=== PATIENT | male | born 1970 | race Caucasian/White ===

== ENCOUNTER 2017-06-08 04:49 | Inpatient (IN) | payer OTHER ==
[~2017-06-08] VITALS: Ht 190.5 cm; Wt 129.2 kg
[2017-06-08 06:19] LABS: Basophils # (auto) 0 uL; Basophils % (auto) 0.5 % (0.0-2.0); Eosinophils # (auto) 0.2 uL; Eosinophils % (auto) 1.6 % (0.0-7.0); Hemoglobin 15.3 g/dL (13.5-17.5); Lymphocytes # (auto) 1.7 uL; Lymphocytes % (auto) 18.1 % (10.0-50.0); Mean Corpuscular Hgb Conc. 34.1 g/dL (32.0-36.0); Mean Corpuscular Volume 87.9 fL (80.0-100.0); Monocytes # (auto) 0.6 uL; Monocytes % (auto) 6.8 % (0.0-12.0); Neutrophils # (auto) 6.8 uL; Nucleated Red Blood Cells % 0.1 %; Platelet Count (auto) 173 10^3/uL (140-450); Red Blood Cells 5.12 10^6/uL (4.5-5.90); Red Cell Distribution Width 13.1 % (11.8-14.3); White Blood Cell 9.3 10^3/uL (4.4-10.8)
[2017-06-08 06:33] LABS: INR 1.05 (0.9-1.15); Partial Thromboplastin Time 29.2 sec (22.64-33.71); Prothrombin Time 11.5 sec (9.37-12.3)
[2017-06-08 06:53] LABS: Albumin 3.9 g/dL (3.4-5.0); Bilirubin, Total 1.2 mg/dL (0.2-1.0); Calcium 8.5 mg/dL (8.5-10.1); Magnesium 2.5 mg/dL (1.6-2.6); Potassium 3.8 mmol/L (3.5-5.1); Total Protein 7.5 g/dL (6.4-8.2)
[2017-06-08] MEDS ORDERED: SODIUM CHLORIDE 0.9% 1,000 ML IV ONE (07:19)
[2017-06-08] MEDS ORDERED: ASPirin 81 mg TAB PO ONE (07:30)
[2017-06-08] MEDS ORDERED: IOHEXOL 350 MG/ML 100ML IJ ONE (12:37)
[2017-06-08] MEDS ORDERED: NITROGLYCERIN 0.4 MG SL TAB SL PRN (14:15)
[2017-06-08] MEDS ORDERED: MORPHINE SULFATE 10 MG/ML INJ 1ML SDV IV PRN ×2 (14:15)
[2017-06-08] MEDS ORDERED: LACTULOSE 20Gm/30ML SOLN PO PRN (14:15)
[2017-06-08] MEDS ORDERED: TEMAZEPAM 15 MG CAP PO PRN (14:15)
[2017-06-08] MEDS ORDERED: ACETAMINOPHEN 500 MG TAB PO PRN (14:15)
[2017-06-08] MEDS ORDERED: CLOPIDOGREL BISULFATE 75 MG TAB PO ONE (14:15)
[2017-06-08] MEDS ORDERED: PROMETHAZINE HCL 25 MG/ML 1ML IV PRN (14:15)
[2017-06-08] MEDS ORDERED: LORazepam 0.5 MG TAB PO PRN (14:15)
[2017-06-08] MEDS: SODIUM CHLORIDE 0.9% 1,000 ML IV SCH (14:29)
[2017-06-08 15:09] LABS: Alcohol, Urine < 3.0 mg/dL (0-5); Amphetamine Screen, Urine NEGATIVE (NEGATIVE); Barbiturate Scree,Urine NEGATIVE (NEGATIVE); Benzodiazephine Screen, Urine NEGATIVE (NEGATIVE); Cannabinoid Screen, Urine NEGATIVE (NEGATIVE); Cocaine Screen, Urine NEGATIVE (NEGATIVE); Opiate Scree,Urine NEGATIVE (NEGATIVE); Phencyclidine Screen, Urine NEGATIVE (NEGATIVE)
[2017-06-08] MEDS: PROMETHAZINE W/CODEINE 5 ML ORAL SYRUP PO PRN (19:56)
[2017-06-08] MEDS: DOXYCYCLINE 100 MG TAB/CAP PO SCH (22:55)
[2017-06-08] MEDS: ENOXAPARIN SOD 100 MG/1 ML SYRINGE SC SCH (22:55)
[2017-06-08] MEDS: METOPROLOL TARTRATE 25 MG TAB PO SCH (22:55)
[2017-06-08] MEDS: ATORVASTATIN 20 MG TAB PO SCH (22:55)
[2017-06-09] MEDS ORDERED: cloNIDine HCL 0.1 MG TAB PO ONE (01:45)
[2017-06-09] MEDS: SODIUM CHLORIDE 0.9% 1,000 ML IV SCH ×2 (04:07→17:41)
[2017-06-09 05:56] LABS: Basophils # (auto) 0 uL; Basophils % (auto) 0.6 % (0.0-2.0); Eosinophils # (auto) 0.2 uL; Eosinophils % (auto) 3.1 % (0.0-7.0); Hematocrit 43.7 % (41.0-53.0); Hemoglobin 15.1 g/dL (13.5-17.5); Lymphocytes # (auto) 1.8 uL; Lymphocytes % (auto) 26.7 % (10.0-50.0); Mean Corpuscular Hemoglobin 30.5 pg (28.0-32.0); Mean Corpuscular Hgb Conc. 34.5 g/dL (32.0-36.0); Mean Corpuscular Volume 88.6 fL (80.0-100.0); Monocytes # (auto) 0.6 uL; Monocytes % (auto) 8.3 % (0.0-12.0); Neutrophils # (auto) 4.2 uL; Neutrophils % (auto) 61.3 % (37.0-80.0); Nucleated Red Blood Cells % 0.1 %; Platelet Count (auto) 156 10^3/uL (140-450); Red Blood Cells 4.94 10^6/uL (4.5-5.90); Red Cell Distribution Width 13.4 % (11.8-14.3); White Blood Cell 6.8 10^3/uL (4.4-10.8)
[2017-06-09 06:22] LABS: Albumin 3.3 g/dL (3.4-5.0); BUN/Creatinine Ratio 19.6; Bilirubin, Total 0.9 mg/dL (0.2-1.0); Calcium 8.2 mg/dL (8.5-10.1); Potassium 3.6 mmol/L (3.5-5.1); Total Protein 6.5 g/dL (6.4-8.2)
[2017-06-09 06:49] LABS: Urine Bacteria FEW /hpf (None Seen); Urine Blood Negative /uL (Negative); Urine Specific Gravity > 1.050 (1.001-1.035); Urine WBC 1 /hpf (0 - 3)
[2017-06-09 07:03] LABS: Alcohol, Urine < 3.0 mg/dL (0-5); Amphetamine Screen, Urine NEGATIVE (NEGATIVE); Barbiturate Scree,Urine NEGATIVE (NEGATIVE); Benzodiazephine Screen, Urine NEGATIVE (NEGATIVE); Cannabinoid Screen, Urine NEGATIVE (NEGATIVE); Cocaine Screen, Urine NEGATIVE (NEGATIVE); Opiate Scree,Urine NEGATIVE (NEGATIVE); Phencyclidine Screen, Urine NEGATIVE (NEGATIVE)
[2017-06-09] MEDS: ASPirin 81 mg TAB PO SCH (09:41)
[2017-06-09] MEDS: ENOXAPARIN SOD 100 MG/1 ML SYRINGE SC SCH ×2 (09:42→22:00)
[2017-06-09] MEDS: PANTOPRAZOLE 40 MG TAB PO SCH (09:42)
[2017-06-09] MEDS: DOXYCYCLINE 100 MG TAB/CAP PO SCH ×2 (09:42→22:09)
[2017-06-09] MEDS: CLOPIDOGREL BISULFATE 75 MG TAB PO SCH (09:42)
[2017-06-09] MEDS: METOPROLOL TARTRATE 25 MG TAB PO SCH ×2 (09:42→22:00)
[2017-06-09] MEDS: NITROGLYCERIN 0.2MG/HR TOPICAL PATCH TD SCH (09:42)
[2017-06-09 15:49] VITALS: BP 116/68
[2017-06-09] MEDS ORDERED: METO25TA5 PO (16:06)
[2017-06-09] MEDS ORDERED: ASPI81CH43 PO (16:06)
[2017-06-09] MEDS ORDERED: ATOR10TA PO (16:06)
[2017-06-09 16:28] VITALS: BP 100/74
[2017-06-09] MEDS: HYDROcodone-ACET 5/325MG TAB PO PRN (20:27)
[2017-06-09] MEDS: PROMETHAZINE W/CODEINE 5 ML ORAL SYRUP PO PRN (20:27)
[2017-06-09 22:00] VITALS: BP 101/61
[2017-06-09] MEDS: ATORVASTATIN 20 MG TAB PO SCH (22:10)
[2017-06-10] VITALS (8 sets, daily range): BP systolic 103–135; BP diastolic 59–85
[2017-06-10] MEDS: SODIUM CHLORIDE 0.9% 1,000 ML IV SCH ×2 (06:29→20:30)
[2017-06-10] MEDS ORDERED: PNEUMOCOCCAL VACC POLYS 25 MCG/0.5 ML VIAL IM ONE (07:45)
[2017-06-10] MEDS: ENOXAPARIN SOD 100 MG/1 ML SYRINGE SC SCH ×2 (10:00→22:00)
[2017-06-10] MEDS: NITROGLYCERIN 0.2MG/HR TOPICAL PATCH TD SCH (10:00)
[2017-06-10] MEDS: PANTOPRAZOLE 40 MG TAB PO SCH (10:00)
[2017-06-10] MEDS: DOXYCYCLINE 100 MG TAB/CAP PO SCH ×2 (10:00→22:20)
[2017-06-10] MEDS: ASPirin 81 mg TAB PO SCH (10:03)
[2017-06-10] MEDS: METOPROLOL TARTRATE 25 MG TAB PO SCH ×2 (10:03→22:00)
[2017-06-10] MEDS: CLOPIDOGREL BISULFATE 75 MG TAB PO SCH (10:03)
[2017-06-10] MEDS ORDERED: LIDOCAINE 2%HCL (LOCAL ANESTH.) INJ 20ML MDV ONE (11:03)
[2017-06-10] MEDS ORDERED: IOHEXOL 350 MG/ML 100ML IJ ONE (11:03)
[2017-06-10] MEDS ORDERED: SODIUM CHL 0.9% 0 ML ONE (12:46)
[2017-06-10] MEDS ORDERED: ANGIOMAX 250 MG VIAL IV ONE (12:46)
[2017-06-10] MEDS ORDERED: MIDAZOLAM HCL 1MG/1ML-2 ML VIAL ONE (12:46)
[2017-06-10] MEDS ORDERED: fentaNYL CITRATE 100 MCG/2 ML VL ONE (12:46)
[2017-06-10] MEDS: HYDROcodone-ACET 5/325MG TAB PO PRN (21:05)
[2017-06-10] MEDS: INFLUENZA QUAD 2017-2018 0.5 ML SYRG IM ONE ×2 (22:19→22:27)
[2017-06-10] MEDS: ATORVASTATIN 20 MG TAB PO SCH (22:20)
== END 2017-06-11 00:45 | DRG 281 ==
LOC: EDBD 04:49 → ER 04:53 → TELE 04:54 → EEVIPCON 04:54 → TELE-E-ADS 06-09 14:37 → EAST 06-09 21:49
PROVIDERS: ADMIT Internal Medicine; ATTEND Internal Medicine
PROC: 4A023N7 Measurement of Cardiac Sampling and Pressure, Left Heart, Percutaneous Approach (ICD-10-PCS; principal; 2017-06-10)
PROC: B2111ZZ Fluoroscopy of Multiple Coronary Arteries using Low Osmolar Contrast (ICD-10-PCS; 2017-06-10)
PROC: B2151ZZ Fluoroscopy of Left Heart using Low Osmolar Contrast (ICD-10-PCS; 2017-06-10)
DX: I21.4 Non-ST elevation (NSTEMI) myocardial infarction (principal); I42.4 Endocardial fibroelastosis; I44.7 Left bundle-branch block, unspecified; I42.2 Other hypertrophic cardiomyopathy; E78.00 Pure hypercholesterolemia, unspecified; E78.5 Hyperlipidemia, unspecified; I10 Essential (primary) hypertension; I25.119 Atherosclerotic heart disease of native coronary artery with unspecified angina pectoris; I70.0 Atherosclerosis of aorta; K44.9 Diaphragmatic hernia without obstruction or gangrene; Z80.42 Family history of malignant neoplasm of prostate; Z95.5 Presence of coronary angioplasty implant and graft; I25.2 Old myocardial infarction; Z95.810 Presence of automatic (implantable) cardiac defibrillator; Z28.21 Immunization not carried out because of patient refusal
CPT/HCPCS: 36415; 71045; 71046; 71275; 80053; 80061; 80307; 81001; 82550; 83735; 83880; 84443; 84484; 85025; 85379; 85610; 85652; 85730; 86141; 86850; 86900; 86901; 87081; 93005; 93458; 94761; 96360; 96361; 99152; J2250

== ENCOUNTER 2017-07-19 17:13 | Inpatient (IN) | payer OTHER ==
[~2017-07-19] VITALS: Ht 193 cm; Wt 119.4 kg
[~2017-07-19 17:13] MED LIST: ASPI81CH43 PO; ATOR10TA PO; METO25TA5 PO
[2017-07-19 18:02] LABS: Basophils # (auto) 0 uL; Basophils % (auto) 0.3 % (0.0-2.0); Eosinophils # (auto) 0.1 uL; Eosinophils % (auto) 0.7 % (0.0-7.0); Hematocrit 48.6 % (41.0-53.0); Hemoglobin 16.2 g/dL (13.5-17.5); Lymphocytes # (auto) 0.9 uL; Lymphocytes % (auto) 6.9 % (10.0-50.0); Mean Corpuscular Hemoglobin 30.3 pg (28.0-32.0); Mean Corpuscular Hgb Conc. 33.4 g/dL (32.0-36.0); Mean Corpuscular Volume 90.7 fL (80.0-100.0); Monocytes # (auto) 1.5 uL; Monocytes % (auto) 10.7 % (0.0-12.0); Neutrophils # (auto) 11.1 uL; Neutrophils % (auto) 81.4 % (37.0-80.0); Nucleated Red Blood Cells % 0.1 %; Platelet Count (auto) 184 10^3/uL (140-450); Red Blood Cells 5.36 10^6/uL (4.5-5.90); Red Cell Distribution Width 13.7 % (11.8-14.3); White Blood Cell 13.6 10^3/uL (4.4-10.8)
[2017-07-19 18:27] LABS: Albumin 3.9 g/dL (3.4-5.0); BUN/Creatinine Ratio 12.9; Bilirubin, Total 0.7 mg/dL (0.2-1.0); Calcium 8.8 mg/dL (8.5-10.1); Potassium 4.3 mmol/L (3.5-5.1)
[2017-07-19] MEDS ORDERED: ONDANSETRON HCL 4 MG/2 ML VIAL IV ONE (19:15)
[2017-07-19] MEDS ORDERED: MORPHINE SULFATE 4 MG/ML SYR/VIAL IV ONE (19:15)
[2017-07-19 19:34] LABS: INR 1.05 (0.9-1.15); Partial Thromboplastin Time 25.7 sec (22.64-33.71); Prothrombin Time 11.4 sec (9.37-12.3)
[2017-07-19] MEDS ORDERED: ASPirin 81 mg TAB PO ONE (20:15)
[2017-07-19] MEDS ORDERED: PANTOPRAZOLE 40 MG TAB PO ONE (21:45)
[2017-07-19] MEDS ORDERED: NITROGLYCERIN 0.4 MG SL TAB SL PRN (21:45)
[2017-07-19] MEDS ORDERED: ONDANSETRON HCL 4 MG/2 ML VIAL IV PRN (21:45)
[2017-07-19] MEDS ORDERED: MORPHINE SULFATE 4 MG/ML SYR/VIAL IV PRN (21:45)
[2017-07-19] MEDS: METOPROLOL TARTRATE 50 MG TAB PO SCH (22:49)
[2017-07-19] MEDS: TRIAMCINOLONE ACET 0.1% TOPICAL CREAM 15GM TOP SCH (22:54)
[2017-07-19] MEDS: ATORVASTATIN 20 MG TAB PO SCH (22:54)
[2017-07-20] VITALS (7 sets, daily range): BP systolic 105–140; BP diastolic 66–92
[2017-07-20] MEDS: IBUPROFEN 600 MG TAB PO PRN (01:16)
[2017-07-20] MEDS: ceFAZolin 1GM/50ML 50 ML IV SCH ×3 (05:56→23:16)
[2017-07-20 08:36] LABS: Basophils # (auto) 0 uL; Basophils % (auto) 0.5 % (0.0-2.0); Eosinophils # (auto) 0.2 uL; Eosinophils % (auto) 2.3 % (0.0-7.0); Hematocrit 47.3 % (41.0-53.0); Hemoglobin 15.5 g/dL (13.5-17.5); Lymphocytes # (auto) 1.4 uL; Lymphocytes % (auto) 20.8 % (10.0-50.0); Mean Corpuscular Hgb Conc. 32.8 g/dL (32.0-36.0); Mean Corpuscular Volume 91.5 fL (80.0-100.0); Monocytes # (auto) 0.9 uL; Monocytes % (auto) 13.2 % (0.0-12.0); Neutrophils # (auto) 4.4 uL; Neutrophils % (auto) 63.2 % (37.0-80.0); Platelet Count (auto) 153 10^3/uL (140-450); Red Blood Cells 5.17 10^6/uL (4.5-5.90); Red Cell Distribution Width 14.1 % (11.8-14.3); White Blood Cell 6.9 10^3/uL (4.4-10.8)
[2017-07-20 09:00] LABS: BUN/Creatinine Ratio 14.7; Calcium 8.6 mg/dL (8.5-10.1); Potassium 4.3 mmol/L (3.5-5.1)
[2017-07-20] MEDS: ASPirin 81 mg TAB PO SCH (09:06)
[2017-07-20] MEDS: AMIODARONE HCL 200 MG TAB PO SCH (09:06)
[2017-07-20] MEDS: HCTZ 25 MG TAB PO SCH (09:07)
[2017-07-20] MEDS: METOPROLOL TARTRATE 50 MG TAB PO SCH ×3 (10:00→23:17)
[2017-07-20] MEDS: TRIAMCINOLONE ACET 0.1% TOPICAL CREAM 15GM TOP SCH ×2 (10:38→23:17)
[2017-07-20] MEDS: MORPHINE SULFATE 4 MG/ML SYR/VIAL IV PRN ×2 (10:50→17:50)
[2017-07-20] MEDS: ATORVASTATIN 20 MG TAB PO SCH ×2 (22:00→23:16)
[2017-07-21] MEDS: IBUPROFEN 600 MG TAB PO PRN ×2 (00:54→09:11)
[2017-07-21 05:00] VITALS: BP 114/80
[2017-07-21] MEDS: ceFAZolin 1GM/50ML 50 ML IV SCH ×3 (05:34→22:11)
[2017-07-21 08:00] VITALS: BP 117/85
[2017-07-21] MEDS: ASPirin 81 mg TAB PO SCH (09:09)
[2017-07-21] MEDS: HCTZ 25 MG TAB PO SCH (09:10)
[2017-07-21] MEDS: AMIODARONE HCL 200 MG TAB PO SCH (09:10)
[2017-07-21] MEDS: TRIAMCINOLONE ACET 0.1% TOPICAL CREAM 15GM TOP SCH ×2 (09:10→22:12)
[2017-07-21] MEDS: METOPROLOL TARTRATE 50 MG TAB PO SCH ×2 (10:00→22:00)
[2017-07-21 12:00] VITALS: BP 119/82
[2017-07-21] MEDS: MORPHINE SULFATE 4 MG/ML SYR/VIAL IV PRN ×2 (13:01→22:12)
[2017-07-21 17:00] VITALS: BP 121/73
[2017-07-21] MEDS: OXYCODONE W/ ACETAMINOPHEN 5/325MG TABLET PO PRN (19:26)
[2017-07-21 20:00] VITALS: BP 106/66
[2017-07-21 21:51] VITALS: BP 106/66
[2017-07-21] MEDS: ATORVASTATIN 20 MG TAB PO SCH (22:00)
[2017-07-22] MEDS: MORPHINE SULFATE 4 MG/ML SYR/VIAL IV PRN ×2 (04:50→12:05)
[2017-07-22 05:21] VITALS: BP 112/67
[2017-07-22] MEDS: ceFAZolin 1GM/50ML 50 ML IV SCH ×3 (06:12→22:33)
[2017-07-22 06:22] LABS: Basophils # (auto) 0.1 uL; Basophils % (auto) 0.9 % (0.0-2.0); Eosinophils # (auto) 0.2 uL; Eosinophils % (auto) 3.8 % (0.0-7.0); Hematocrit 47.3 % (41.0-53.0); Hemoglobin 16.1 g/dL (13.5-17.5); Lymphocytes # (auto) 1.5 uL; Lymphocytes % (auto) 24.9 % (10.0-50.0); Mean Corpuscular Hemoglobin 30.7 pg (28.0-32.0); Mean Corpuscular Volume 90.3 fL (80.0-100.0); Monocytes # (auto) 0.7 uL; Neutrophils # (auto) 3.6 uL; Neutrophils % (auto) 59.4 % (37.0-80.0); Nucleated Red Blood Cells % 0.2 %; Platelet Count (auto) 156 10^3/uL (140-450); Red Blood Cells 5.23 10^6/uL (4.5-5.90); Red Cell Distribution Width 13.6 % (11.8-14.3)
[2017-07-22 07:03] LABS: BUN/Creatinine Ratio 15.9; Calcium 8.9 mg/dL (8.5-10.1); Potassium 4.3 mmol/L (3.5-5.1)
[2017-07-22 08:41] VITALS: BP 122/70
[2017-07-22] MEDS: TRIAMCINOLONE ACET 0.1% TOPICAL CREAM 15GM TOP SCH ×2 (10:00→22:33)
[2017-07-22] MEDS: METOPROLOL TARTRATE 50 MG TAB PO SCH ×2 (10:00→22:00)
[2017-07-22] MEDS: AMIODARONE HCL 200 MG TAB PO SCH (10:55)
[2017-07-22] MEDS: HCTZ 25 MG TAB PO SCH (10:55)
[2017-07-22] MEDS: ASPirin 81 mg TAB PO SCH (11:02)
[2017-07-22 13:00] VITALS: BP 121/83
[2017-07-22 16:54] VITALS: BP 136/86
[2017-07-22 20:00] VITALS: BP 139/86
[2017-07-22] MEDS: ATORVASTATIN 20 MG TAB PO SCH (22:00)
[2017-07-22 23:03] VITALS: BP 139/86
[2017-07-23] MEDS: IBUPROFEN 600 MG TAB PO PRN ×2 (00:55→20:50)
[2017-07-23 05:29] VITALS: BP 108/67
[2017-07-23] MEDS: ceFAZolin 1GM/50ML 50 ML IV SCH (05:38)
[2017-07-23 09:00] VITALS: BP 117/80
[2017-07-23] MEDS: AMIODARONE HCL 200 MG TAB PO SCH (09:22)
[2017-07-23] MEDS: ASPirin 81 mg TAB PO SCH (09:22)
[2017-07-23] MEDS: METOPROLOL TARTRATE 50 MG TAB PO SCH ×2 (09:23→21:50)
[2017-07-23] MEDS: HCTZ 25 MG TAB PO SCH (09:23)
[2017-07-23] MEDS ORDERED: DOCUSATE SOD 100 MG CAP PO ONE (09:30)
[2017-07-23] MEDS: TRIAMCINOLONE ACET 0.1% TOPICAL CREAM 15GM TOP SCH ×2 (11:11→21:51)
[2017-07-23 13:00] VITALS: BP 111/71
[2017-07-23] MEDS: traMADol HCL 50 MG TAB PO PRN (13:52)
[2017-07-23 17:00] VITALS: BP 107/75
[2017-07-23] MEDS: OXYCODONE W/ ACETAMINOPHEN 5/325MG TABLET PO PRN (19:41)
[2017-07-23] MEDS: DOCUSATE SOD 100 MG CAP PO SCH (21:50)
[2017-07-23] MEDS: ATORVASTATIN 20 MG TAB PO SCH (21:50)
[2017-07-23 22:00] VITALS: BP 105/78
[2017-07-24 05:00] VITALS: BP 102/71
[2017-07-24 09:00] VITALS: BP 106/69
[2017-07-24] MEDS: ASPirin 81 mg TAB PO SCH (09:24)
[2017-07-24] MEDS: DOCUSATE SOD 100 MG CAP PO SCH (09:25)
[2017-07-24] MEDS: AMIODARONE HCL 200 MG TAB PO SCH (09:25)
[2017-07-24] MEDS: TRIAMCINOLONE ACET 0.1% TOPICAL CREAM 15GM TOP SCH ×2 (09:26→22:04)
[2017-07-24] MEDS: HCTZ 25 MG TAB PO SCH (09:26)
[2017-07-24] MEDS: METOPROLOL TARTRATE 50 MG TAB PO SCH ×2 (09:26→22:00)
[2017-07-24 13:00] VITALS: BP 107/68
[2017-07-24 17:00] VITALS: BP 125/75
[2017-07-24 22:00] VITALS: BP 110/71
[2017-07-24] MEDS: ATORVASTATIN 20 MG TAB PO SCH (22:04)
[2017-07-24] MEDS: DOCUSATE SOD 100 MG CAP PO PRN (22:05)
[2017-07-25] MEDS: OXYCODONE W/ ACETAMINOPHEN 5/325MG TABLET PO PRN ×2 (00:09→22:00)
[2017-07-25] MEDS: IBUPROFEN 600 MG TAB PO PRN (00:58)
[2017-07-25 05:00] VITALS: BP 99/65
[2017-07-25 08:46] VITALS: BP 110/68
[2017-07-25] MEDS: TRIAMCINOLONE ACET 0.1% TOPICAL CREAM 15GM TOP SCH ×2 (09:04→21:59)
[2017-07-25] MEDS: AMIODARONE HCL 200 MG TAB PO SCH (09:05)
[2017-07-25] MEDS: ASPirin 81 mg TAB PO SCH (09:05)
[2017-07-25] MEDS: DOCUSATE SOD 100 MG CAP PO PRN (09:06)
[2017-07-25] MEDS: HCTZ 25 MG TAB PO SCH (09:06)
[2017-07-25] MEDS: traMADol HCL 50 MG TAB PO PRN ×3 (09:07→18:24)
[2017-07-25] MEDS: METOPROLOL TARTRATE 50 MG TAB PO SCH ×2 (09:07→21:59)
[2017-07-25 12:16] VITALS: BP 109/70
[2017-07-25 17:15] VITALS: BP 100/71
[2017-07-25] MEDS: ATORVASTATIN 20 MG TAB PO SCH (21:59)
[2017-07-25 22:00] VITALS: BP 95/69
[2017-07-26] MEDS: OXYCODONE W/ ACETAMINOPHEN 5/325MG TABLET PO PRN ×4 (02:05→23:59)
[2017-07-26 05:15] VITALS: BP 136/77
[2017-07-26 08:49] VITALS: BP 103/67
[2017-07-26] MEDS: AMIODARONE HCL 200 MG TAB PO SCH (09:55)
[2017-07-26] MEDS: ASPirin 81 mg TAB PO SCH (09:56)
[2017-07-26] MEDS: METOPROLOL TARTRATE 50 MG TAB PO SCH ×3 (09:57→21:16)
[2017-07-26] MEDS: HCTZ 25 MG TAB PO SCH (09:57)
[2017-07-26] MEDS: TRIAMCINOLONE ACET 0.1% TOPICAL CREAM 15GM TOP SCH ×2 (09:57→21:15)
[2017-07-26] MEDS: DOCUSATE SOD 100 MG CAP PO PRN (10:12)
[2017-07-26 12:27] VITALS: BP 126/75
[2017-07-26] MEDS ORDERED: MORPHINE SULFATE 4 MG/ML SYR/VIAL IV PRN ×2 (13:30)
[2017-07-26] MEDS ORDERED: NITROGLYCERIN 0.4 MG SL TAB SL PRN ×2 (13:30)
[2017-07-26] MEDS ORDERED: PANTOPRAZOLE 40 MG TAB PO ONE (13:30)
[2017-07-26] MEDS: SODIUM CHLOR 0.9% PF (SALINE LOCK) 10ML VIAL IV SCH ×2 (13:38→21:15)
[2017-07-26 16:30] VITALS: BP 116/74
[2017-07-26] MEDS: ATORVASTATIN 20 MG TAB PO SCH (21:16)
[2017-07-26 22:00] VITALS: BP 107/92
[2017-07-27 05:00] VITALS: BP 109/73
[2017-07-27] MEDS: SODIUM CHLOR 0.9% PF (SALINE LOCK) 10ML VIAL IV SCH ×3 (06:18→21:59)
[2017-07-27 06:23] LABS: BUN/Creatinine Ratio 20.3; Calcium 8.9 mg/dL (8.5-10.1); Potassium 4.6 mmol/L (3.5-5.1)
[2017-07-27] MEDS: OXYCODONE W/ ACETAMINOPHEN 5/325MG TABLET PO PRN ×2 (06:33→22:40)
[2017-07-27 09:25] VITALS: BP 107/71
[2017-07-27] MEDS: ASPirin 81 mg TAB PO SCH (09:32)
[2017-07-27] MEDS: HCTZ 25 MG TAB PO SCH (09:33)
[2017-07-27] MEDS: METOPROLOL TARTRATE 50 MG TAB PO SCH ×2 (09:34→21:59)
[2017-07-27] MEDS: TRIAMCINOLONE ACET 0.1% TOPICAL CREAM 15GM TOP SCH ×2 (09:34→22:00)
[2017-07-27] MEDS ORDERED: AMIODARONE HCL 200 MG TAB PO SCH (10:00)
[2017-07-27] MEDS ORDERED: PANTOPRAZOLE 40 MG TAB PO SCH (10:00)
[2017-07-27] MEDS: traMADol HCL 50 MG TAB PO PRN (11:41)
[2017-07-27 11:42] VITALS: BP 111/73
[2017-07-27] MEDS: IBUPROFEN 600 MG TAB PO PRN (15:05)
[2017-07-27 17:00] VITALS: BP 107/77
[2017-07-27 19:28] VITALS: BP 111/73
[2017-07-27] MEDS: ATORVASTATIN 20 MG TAB PO SCH (21:59)
[2017-07-27 22:00] VITALS: BP 114/40
== END 2017-07-27 23:00 | DRG 315 ==
LOC: ER 17:13 → EEVIPCON 17:14 → TELE 17:14 → TELE-E-ADS 07-20 02:33 → EAST 07-23 23:57 → TELE-E-ADS 07-25 00:42
PROVIDERS: ADMIT Internal Medicine; ATTEND Internal Medicine
DX: S26.91XA Contusion of heart, unspecified with or without hemopericardium, initial encounter (principal); I42.9 Cardiomyopathy, unspecified; I13.10 Hypertensive heart and chronic kidney disease without heart failure, with stage 1 through stage 4 chronic kidney disease, or unspecified chronic kidney disease; S00.83XA Contusion of other part of head, initial encounter; E78.00 Pure hypercholesterolemia, unspecified; I25.10 Atherosclerotic heart disease of native coronary artery without angina pectoris; S00.03XA Contusion of scalp, initial encounter; S20.212A Contusion of left front wall of thorax, initial encounter; S20.211A Contusion of right front wall of thorax, initial encounter; B19.20 Unspecified viral hepatitis C without hepatic coma; N18.2 Chronic kidney disease, stage 2 (mild); I49.8 Other specified cardiac arrhythmias; S00.11XA Contusion of right eyelid and periocular area, initial encounter; Y93.89 Activity, other specified; Z79.82 Long term (current) use of aspirin; I25.2 Old myocardial infarction; Z95.810 Presence of automatic (implantable) cardiac defibrillator; Z79.899 Other long term (current) drug therapy; Y08.89XA Assault by other specified means, initial encounter; Y92.89 Other specified places as the place of occurrence of the external cause; Y99.8 Other external cause status; Z80.8 Family history of malignant neoplasm of other organs or systems
CPT/HCPCS: 36415; 70450; 70486; 71045; 80048; 80053; 82550; 83735; 83880; 84484; 85025; 85610; 85730; 87081; 93005; 93306; 94761; 96374; 96375; J0690; J2405